=== PATIENT | male | born 1970 | race Two or more races ===

== ENCOUNTER 2016-07-09 06:45 | Day surgery (SDC) | payer OTHER ==
[2016-07-02 14:27] VITALS: BMI 32.8
[2016-07-09] MEDS ORDERED: PROPOFOL 20 ML ONE (08:42)
[2016-07-09] MEDS ORDERED: MIDAZOLAM HCL 2 MG/2 ML SINGLE DOSE VIAL ONE (08:42)
[2016-07-09] MEDS ORDERED: LIDOCAINE HCL/PF 2% SDV 5ML VIAL ONE (08:43)
[2016-07-09] MEDS ORDERED: GLYCOPYRROLATE 0.2 MG/1 ML VIAL ONE (09:03)
[2016-07-09] MEDS ORDERED: NEOSTIGMINE METHYLSULFATE 0.5 MG/ML - 10 ML MDV ONE (09:03)
[2016-07-09] MEDS ORDERED: HYDROmorphone HCL/PF 1 MG/ML VIAL (FOR PYXIS CHARGING ONLY) ONE (09:17)
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
[2016-07-09] MEDS ORDERED: ceFAZolin SODIUM 1 GM VIAL ONE ×2 (10:09→10:16)
[2016-07-09] MEDS ORDERED: DEXAMETHASONE SOD PHOSPHATE 4 MG/1 ML VIAL ONE (10:16)
[2016-07-09] MEDS ORDERED: ONDANSETRON 4 MG/2 ML VIAL ONE (10:16)
[2016-07-09] MEDS ORDERED: ONDANSETRON 4 MG/2 ML VIAL IVPUSH PRN (10:22)
[2016-07-09] MEDS ORDERED: oxyCODONE HCL 5 MG TABLET PO PRN (11:12)
[2016-07-09] MEDS ORDERED: LACTATED RINGERS SOLUTION 1,000 ML IV SCH (11:15)
--- NOTE | 2016-07-09 11:31 | DS ---
Physical Examination Vital Signs: Vital Signs Temperature 98.4 F 07/09/16 07:45 Pulse Rate 64 07/09/16 07:45 Respiratory Rate 16 07/09/16 07:45 Blood Pressure 126/79 07/09/16 07:45 O2 Sat by Pulse Oximetry (%) 97 07/09/16 07:56 Discharge Summary Reason For Visit: MEDIAL MENISCAL TEAR, PAINFUL HARDWARE LEFT KNEE Condition: Good - Instructions Diet, Activity, Other Instructions: Post Operative Instructions: Knee Arthroscopy Dr Ernesto Aaron 1. Pain following an arthroscopy is variable. Some patients will have more pain than others. You have been provided with a prescription for medication that contains a narcotic. You are not allowed to drive while on this medication. You should NOT take Tylenol (Acetaminophen) when taking the pain medication ( it will result in an overdose). Feel free to take medications such as Ibuprofen or Naprosyn in addition to the pain medicine if you do not have any problems with the NSAID class of medications. 2. You are allowed to remove the bandages and shower in 24 hours unless directed otherwise. You are not allowed to bathe or go swimming until the sutures are removed. Put band-aids on the sutures after your shower and do not put any creams or lotions over the incisions. 3. You are allowed to put all your weight on the leg and bend your knee, 4. Apply ice to the knee for 15 min every hour or so. You may continue this for as many days as you like. 5. Please call the office to schedule a visit to have your sutures removed. 6. If for any reason you believe you may have an infection or are concerned, please feel free to call me. I can be reached through our office number 24 hours a day. 7. Please call our office with any questions; we will review the surgical findings during your post operative visit. Disposition: HOME - Home Medications Comprehensive Discharge Medication List: Ambulatory Orders Acetaminophen [Tylenol -] 500 mg PO HS PRN 07/02/16
--- NOTE | 2016-07-09 11:31 | OP ---
Operative Note - Note: Operative Date: 07/09/16 Pre-Operative Diagnosis: Left knee painful hardware. Left knee MMT. Operation: LKA, PMM. Open removal of hardware Post-Operative Diagnosis: Same as Pre-op Surgeon: Ernesto Aaron Anesthesia: General Operative Report Dictated: Yes
[2016-07-09 13:30] VITALS: TEMP 97.8
[2016-07-09 15:04] VITALS: BP 124/79; PULSE 95
--- NOTE | 2016-07-09 15:27 | SURG ---
Surgery Distance Learning Coordinator Note Distance Learning Coordinator: Jada Guillen PA-C Date of Service: 07/09/16 Diagnosis: Left knee painful hardware. Left knee MMT. Procedure: LKA, PMM. Open removal of hardware I was present for the entirety of the operative procedure. For further detail, please refer to operative report. Visit type - Case Type Case Type: Scheduled Admission - Emergency Emergency Visit: No - New patient This patient is new to me today: Yes Date on this admission: 07/09/16 - Critical Care Critical Care patient: No
--- NOTE | 2016-07-13 09:51 | PATH ---
Surgical Pathology Report Patient Name: ALDO GAY Med. Rec. #: [id number] /Age/Gender: 1970 (Age: 46) / M Account: [id number] [facility] Taken: 07/09/2016 Received: 07/09/2016 Reported: 07/13/2016 Physicians: Ernesto Aaron M.D. Specimen(s) Received HARDWARE LEFT KNEE Clinical History Medial meniscal tear Painful hardware left knee Final Diagnosis ORTHOPEDIC HARDWARE, LEFT KNEE, REMOVAL: METALLIC SCREWS AND WASHERS CONSISTENT WITH ORTHOPEDIC HARDWARE (GROSS ONLY). Electronically Signed Mo Woodruff M.D. Gross Description Received fresh, labeled "hardware left knee," are 2 green metallic washers averaging 2 cm in diameter. Separately received within the same container are 3 [place] metallic screws ranging from 3.5-6.0 cm in length. No soft tissue is present. No sections are submitted, gross only. 07/12/2016 saudi07/12/2016
== END 2016-07-09 15:25 | disposition home or self-care (01) ==
LOC: FASU 06:45
PROVIDERS: ATTEND Orthopaedic Surgery
PROC: 0SPD04Z Removal of Internal Fixation Device from Left Knee Joint, Open Approach (ICD-10-PCS; 2016-07-09)
PROC: 0SBD4ZZ Excision of Left Knee Joint, Percutaneous Endoscopic Approach (ICD-10-PCS; principal; 2016-07-09 10:33)
DX: S83.232D Complex tear of medial meniscus, current injury, left knee, subsequent encounter (principal); T84.498A Other mechanical complication of other internal orthopedic devices, implants and grafts, initial encounter; T84.84XA Pain due to internal orthopedic prosthetic devices, implants and grafts, initial encounter; X58.XXXD Exposure to other specified factors, subsequent encounter; T84.89XA Other specified complication of internal orthopedic prosthetic devices, implants and grafts, initial encounter; Y83.8 Other surgical procedures as the cause of abnormal reaction of the patient, or of later complication, without mention of misadventure at the time of the procedure; Y92.9 Unspecified place or not applicable
CPT/HCPCS: 88300-TC; 94760